=== PATIENT | male | born 1990 | race African-American/Black ===

== ENCOUNTER 2019-08-22 03:40 | Emergency (ER) | payer OTHER ==
[2019-08-22 05:18] LABS: Absolute Lymphocytes (CBC) 3.3 K/uL (0.7-4.9); Basophils % 0.6 % (0-1.3); Hematocrit 41.5 % (39.6-49.0); Lymphocytes % 50.7 % (15.3-44.8); MPV 8.9 fL (7.6-11.3); Protime INR 0.99; RBC Red Blood Cell Count 4.91 M/uL (4.33-5.43)
[2019-08-22 05:33] LABS: ALT/SGPT 21 U/L (12-78); AST/SGOT 17 U/L (15-37); Albumin 3.8 g/dL (3.4-5.0); Alkaline Phosphatase 57 U/L (45-117); BUN Blood Urea Nitrogen 17 mg/dL (7-18); Bicarbonate 29 mmol/L (21-32); Bilirubin Direct 0.1 mg/dL (0-0.2); Bilirubin Total 0.5 mg/dL (0.2-1.0); Glucose Level 75 mg/dL (74-106); Magnesium 2.2 mg/dL (1.8-2.4); NT PRO-BNP 22 pg/mL (<125); Potassium 4.1 mmol/L (3.5-5.1); Sodium Level 141 mmol/L (136-145); Troponin (Emerg Dept Use Only) < 0.02 ng/mL (0.0-0.045)
[2019-08-22 05:42] LABS: Blood Morphology Comment NOT SEEN (NOT SEEN); Platelet Estimate ADEQ
--- NOTE | 2019-08-22 05:47 | ER ---
Nurse's Notes [facility] Name: Pro Wellington Age: 29 yrs Sex: Male : 1990 Arrival Date: 08/22/2019 Time: 03:44 Bed 19 Private MD: Diagnosis: Acute bronchitis Presentation: 08/22 03:52 Presenting complaint: Patient states: He found mold on his apartment and just wants to wh be checked out. Pt states he is experiencing chest pain on and off for a couple of months now. Transition of care: patient was not received from another setting of care. Onset of symptoms was August 22, 2019. Risk Assessment: Do you want to hurt yourself or someone else? Patient reports no desire to harm self or others. Initial Sepsis Screen: Does the patient meet any 2 criteria? No. Patient's initial sepsis screen is negative. Does the patient have a suspected source of infection? No. Patient's initial sepsis screen is negative. Care prior to arrival: None. 03:52 Method Of Arrival: Ambulatory 03:52 Acuity: KELLIE 3 Historical: - Allergies: 03:57 No Known Allergies; - Home Meds: 03:57 Adderall XR Oral [Active]; - PMHx: 03:57 ADD/ADHD; - PSHx: 03:57 None; - Immunization history:: Adult Immunizations not immunized. - Social history:: Smoking status: Patient uses tobacco products. - Ebola Screening: : Patient negative for fever greater than or equal to 101.5 degrees Fahrenheit, and additional compatible Ebola Virus Disease symptoms Patient denies exposure to infectious person. Screenin:53 Abuse screen: Denies threats or abuse. Denies injuries from another. Nutritional screening: No deficits noted. Tuberculosis screening: No symptoms or risk factors identified. Fall Risk None identified. Assessment: 03:58 General: Appears in no apparent distress. Behavior is calm, cooperative, appropriate for age. Pain: Complains of pain in chest Pain does not radiate. Pain currently is 3 out of 10 on a pain scale. Quality of pain is described as aching, Pain began gradually. Neuro: Level of Consciousness is awake, alert, obeys commands, Oriented to person, place, time, situation, Appropriate for age. Cardiovascular: Heart tones S1 S2. Respiratory: Airway is patent Respiratory effort is even, unlabored, Respiratory pattern is regular, symmetrical, Breath sounds are clear bilaterally. GI: Abdomen is flat, non-distended. : No signs and/or symptoms were reported regarding the genitourinary system. EENT: No signs and/or symptoms were reported regarding the EENT system. Derm: Skin is intact, is healthy with good turgor, Skin is pink, warm \T\ dry. normal. Musculoskeletal: Circulation, motion, and sensation intact. 05:02 Reassessment: Patient appears in no apparent distress at this time. No changes from previously documented assessment. Patient and/or family updated on plan of care and expected duration. Pain level reassessed. Patient is alert, oriented x 3, equal unlabored respirations, skin warm/dry/pink. Vital Signs: 03:54 BP 112 / 72; Pulse 56; Resp 18; Temp 98.2; Pulse Ox 100% ; Weight 79.38 kg; Height 6 wh ft. (182.88 cm); 05:02 BP 119 / 56; Pulse 61; Resp 21; Pulse Ox 98% ; wh 03:54 Body Mass Index 23.73 (79.38 kg, 182.88 cm) ED Course: 03:44 Patient arrived in ED. ds1 03:48 Beni Diallo is Primary Nurse. wh 03:50 Augustine Ngo MD is Attending Physician. tw4 03:53 Triage completed. 03:54 Patient has correct armband on for positive identification. Bed in low position. Call light in reach. Side rails up X 1. hall monitor on. Pulse ox on. NIBP on. 03:58 Arm band placed on right wrist. 03:59 Patient maintains SpO2 saturation greater than 95% on room air. 05:51 No provider procedures requiring assistance completed. IV discontinued, intact, bleeding controlled, No redness/swelling at site. 08:10 XRAY Chest (1 view) In Process Unspecified. EDMS Administered Medications: No medications were administered Outcome: 05:47 Discharge ordered by . tw4 05:51 Discharged to home ambulatory. 05:51 Condition: stable 05:51 Discharge instructions given to patient, Instructed on discharge instructions, follow up and referral plans. medication usage, POC Acute Bronchitis Demonstrated understanding of instructions, follow-up care, medications, POC Prescriptions given X 2. 05:59 Patient left the ED. Signatures: Dispatcher [employer] Sarita Clancy ds1 Beni Diallo Terrence, MD MD tw4
--- NOTE | 2019-08-22 05:47 | EDPHYS ---
Physician Documentation [facility] Name: Pro Wellington Age: 29 yrs Sex: Male : 1990 Arrival Date: 08/22/2019 Time: 03:44 Bed 19 Private MD: ED Physician Augustine Ngo HPI: 08/22 05:42 This 29 yrs old Black Male presents to ER via Ambulatory with complaints of Chest Pain. tw4 05:42 This 29 yrs old Black Male presents to ER via Ambulatory with complaints of Chest Pain tw4 for several weeks. 05:42 The patient or guardian reports chest pain that is located primarily in the anterior tw4 chest wall, left. The pain does not radiate. The chest pain is described as aching. Duration: The patient or guardian reports a single episode, that is still ongoing. Modifying factors: The symptoms are alleviated by nothing. the symptoms are aggravated by nothing. Severity of pain: At its worst the pain was mild in the emergency department the pain is unchanged. The patient has not experienced similar symptoms in the past. 05:46 Associated signs and symptoms: Pertinent positives: cough. tw4 Historical: - Allergies: 03:57 No Known Allergies; - Home Meds: 03:57 Adderall XR Oral [Active]; - PMHx: 03:57 ADD/ADHD; - PSHx: 03:57 None; - Immunization history:: Adult Immunizations not immunized. - Social history:: Smoking status: Patient uses tobacco products. - Ebola Screening: : Patient negative for fever greater than or equal to 101.5 degrees Fahrenheit, and additional compatible Ebola Virus Disease symptoms Patient denies exposure to infectious person. ROS: 05:42 Constitutional: Negative for fever, chills, and weight loss, Eyes: Negative for injury, tw4 pain, redness, and discharge, Respiratory: Negative for shortness of breath, cough, wheezing, and pleuritic chest pain, Abdomen/GI: Negative for abdominal pain, nausea, vomiting, diarrhea, and constipation, Back: Negative for injury and pain, MS/Extremity: Negative for injury and deformity, Skin: Negative for injury, rash, and discoloration, Neuro: Negative for headache, weakness, numbness, tingling, and seizure. 05:42 Cardiovascular: Positive for chest pain, Negative for edema, orthopnea, palpitations, paroxysmal nocturnal dyspnea. Exam: 05:42 Constitutional: This is a well developed, well nourished patient who is awake, alert, tw4 and in no acute distress. Head/Face: Normocephalic, atraumatic. Chest/axilla: Normal chest wall appearance and motion. Nontender with no deformity. No lesions are appreciated. Cardiovascular: Regular rate and rhythm with a normal S1 and S2. No gallops, murmurs, or rubs. Normal PMI, no JVD. No pulse deficits. Respiratory: Lungs have equal breath sounds bilaterally, clear to auscultation and percussion. No rales, rhonchi or wheezes noted. No increased work of breathing, no retractions or nasal flaring. Abdomen/GI: Soft, non-tender, with normal bowel sounds. No distension or tympany. No guarding or rebound. No evidence of tenderness throughout. Back: No spinal tenderness. No costovertebral tenderness. Full range of motion. MS/ Extremity: Pulses equal, no cyanosis. Neurovascular intact. Full, normal range of motion. Neuro: Awake and alert, GCS 15, oriented to person, place, time, and situation. Cranial nerves II-XII grossly intact. Motor strength 5/5 in all extremities. Sensory grossly intact. Cerebellar exam normal. Normal gait. Psych: Awake, alert, with orientation to person, place and time. Behavior, mood, and affect are within normal limits. Vital Signs: 03:54 BP 112 / 72; Pulse 56; Resp 18; Temp 98.2; Pulse Ox 100% ; Weight 79.38 kg; Height 6 wh ft. (182.88 cm); 05:02 BP 119 / 56; Pulse 61; Resp 21; Pulse Ox 98% ; wh 03:54 Body Mass Index 23.73 (79.38 kg, 182.88 cm) wh MDM: 03:50 Patient medically screened. tw4 05:42 Differential diagnosis: abnormal EKG, acute myocardial infarction, costochondritis, tw4 pulmonary embolus, stable angina, unstable angina. Data reviewed: vital signs, nurses notes. Counseling: I had a detailed discussion with the patient and/or guardian regarding: the historical points, exam findings, and any diagnostic results supporting the discharge/admit diagnosis, lab results, radiology results. Special discussion: I discussed with the patient/guardian in detail that at this point there is no indication for admission to the hospital. It is understood, however, that if the symptoms persist or worsen the patient needs to return immediately for re-evaluation. 08/22 04:41 Order name: Basic Metabolic Panel 08/22 04:41 Order name: CBC with Diff; Complete Time: 05:48 08/22 05:48 Interpretation: Normal except: DONTAE% 36.7; LYM% 50.7. 08/22 04:41 Order name: LFT's; Complete Time: 05:48 08/22 05:48 Interpretation: Within normal limits. 08/22 04:41 Order name: Magnesium; Complete Time: 05:48 08/22 05:48 Interpretation: Within normal limits: MG 2.2. 08/22 04:41 Order name: NT PRO-BNP; Complete Time: 05:48 08/22 05:48 Interpretation: Within normal limits: NT PRO-BNP 22. 08/22 04:41 Order name: PT-INR; Complete Time: 05:48 08/22 05:48 Interpretation: Within normal limits. 08/22 04:15 Order name: EKG - Nurse/Tech; Complete Time: 04:15 wh 08/22 04:41 Order name: Troponin (emerg Dept Use Only); Complete Time: 05:48 08/22 05:49 Interpretation: Within normal limits: TROPED < 0.02. 08/22 04:41 Order name: XRAY Chest (1 view) 08/22 04:41 Order name: EKG; Complete Time: 04:41 08/22 04:41 Order name: Cardiac monitoring; Complete Time: 04:50 08/22 04:41 Order name: EKG - Nurse/Tech; Complete Time: 04:50 08/22 04:41 Order name: IV Saline Lock; Complete Time: 04:50 08/22 05:25 Order name: Manual Differential; Complete Time: 05:48 EDMS 08/22 05:48 Interpretation: Normal except: SEGS 34; LYM 48; EOS 4. 08/22 04:41 Order name: Labs collected and sent; Complete Time: 04:50 08/22 04:41 Order name: O2 Per Protocol; Complete Time: 04:50 tw4 08/22 04:41 Order name: O2 Sat Monitoring; Complete Time: :50 tw4 EC:42 Rate is 53 beats/min. Rhythm is regular, Sinus bradycardia. QRS [place] is Normal. [place] tw4 interval is normal. No Q waves. No ST changes noted. Clinical impression: Sinus bradycardia. Interpreted by me. Reviewed by me. Administered Medications: No medications were administered Disposition: 08/22/19 05:47 Discharged to Home. Impression: Acute bronchitis. - Condition is Stable. - Discharge Instructions: Acute Bronchitis, Adult. - Prescriptions for Tessalon Perles 100 mg Oral Capsule - take 1 capsule by ORAL route every 8 hours As needed; 15 capsule. Albuterol Sulfate 90 mcg/actuation - inhale 1-2 puff by INHALATION route every 4-6 hours; 1 Inhaler. - Medication Reconciliation Form, Thank You Letter, Antibiotic Education, Prescription Opioid Use form. - Follow up: Private Physician; When: Upon discharge from the Emergency Department; Reason: Recheck today's complaints, Continuance of care. - Problem is new. - Symptoms have improved. Signatures: Dispatcher [employer] EDCA Beni Diallo Terrence, MD MD tw4 Corrections: (The following items were deleted from the chart) 05:46 05:42 Associated signs and symptoms: The patient has no apparent associated signs or tw4 symptoms, tw4 05:59 05:47 08/22/2019 05:47 Discharged to Home. Impression: Acute bronchitis. Condition is wh Stable. Forms are Medication Reconciliation Form, Thank You Letter, Antibiotic Education, Prescription Opioid Use. Follow up: Private Physician; When: Upon discharge from the Emergency Department; Reason: Recheck today's complaints, Continuance of care. Problem is new. Symptoms have improved. tw4
[2019-08-22 06:08] VITALS: TEMP 98.2
[2019-08-22 06:10] VITALS: BP 119/56; O2SAT 98
--- NOTE | 2019-08-22 07:04 | EKG ---
Test Date: 2019-08-22 Test Time: 04:01:43 Malted Milk Mixer: JASMIN MEASUREMENT RESULTS: Intervals: Rate: 53 AR: 158 QRSD: 92 QT: 398 QTc: 373 [place]: P: 58 AR: 158 QRS: 75 T: 9 INTERPRETIVE STATEMENTS: Sinus bradycardia with premature atrial complexes Otherwise normal ECG No previous ECG available for comparison Electronically Signed On 08-22-19 07:03:35 CDT by Troy Ramos
--- NOTE | 2019-08-22 08:43 | RAD REPORT ---
EXAM DESCRIPTION: Christine Single View08/22/2019 8:10 am CLINICAL HISTORY: Chest pain COMPARISON: none FINDINGS: The lungs appear clear of acute infiltrate. The heart is normal size IMPRESSION: No acute abnormalities displayed
== END 2019-08-22 05:59 | disposition home or self-care (01) ==
LOC: ER 03:40
DX: J20.9 Acute bronchitis, unspecified (principal); Z72.0 Tobacco use
CPT/HCPCS: 36415; 71045; 80048; 80076; 83735; 83880; 84484; 85025; 85610; 93005; 99284